=== PATIENT | female | born 1955 | race Hispanic/Latino ===

== ENCOUNTER 2017-04-28 08:46 | Outpatient (CLI) | payer OTHER ==
--- NOTE | 2017-04-28 13:25 | Cat Scan Report ---
CT ABDOMEN AND PELVIS WITH CONTRAST: 04/28/17 08:46:00 CLINICAL: Epigastric pain and abdominal distention. COMPARISON: None. TECHNIQUE: Volumetric acquisition and 1.25 millimeter scan reconstructions after the uneventful intravenous injection of 100 cc Omnipaque 300. Consent was obtained prior to the administration of contrast. Oral contrast was also given. FINDINGS: Abdomen: The lung bases are clear.Normal liver and bile ducts status post cholecystectomy. The common bile that measures 8 mm in the tee hepatis. CBD tapers normally to the ampulla and there is no evidence of choledocholithiasis. Normal stomach, duodenum, pancreas and spleen. Normal adrenal glands. Kidneys are normal except for bilateral benign cysts. A posterior parapelvic cyst in the midportion of the right kidney measures 2.9 cm and a benign left upper pole renal cyst measures 1 cm. The renal collecting systems and ureters are nondilated. No urinary calculus or mass. Moderate calcification of the aorta and iliac arteries. The inferior vena cava is normal. Normal small bowel.Normal ascending and transverse colon. Mild diverticulosis of the descending colon. An appendix is not identified. The terminal ileum is normal. No mass, lymphadenopathy or ascites.No pneumoperitoneum. Pelvis: Normal urinary bladder.Normal uterus. Ovaries are not identified. The rectum is normal. Extensive diverticulosis of the sigmoid colon but no signs of diverticulitis. No pelvic mass or fluid. Bone windows demonstrate no suspicious bone lesion. Degenerative changes in the spine. IMPRESSION:1. Status post cholecystectomy. 2. Bilateral benign renal cysts. 3. No ventral hernia. 4. No explanation for epigastric pain. 5. Diverticulosis of the left colon and sigmoid colon but no diverticulitis. 6. Status post appendectomy.
== END 2017-04-28 08:47 | disposition home or self-care (01) ==
LOC: SPVIMAG 08:46
PROVIDERS: ATTEND Internal Medicine Gastroenterology
DX: N28.1 Cyst of kidney, acquired (principal); K57.30 Diverticulosis of large intestine without perforation or abscess without bleeding; I70.0 Atherosclerosis of aorta; M47.899 Other spondylosis, site unspecified; Z90.89 Acquired absence of other organs; Z90.49 Acquired absence of other specified parts of digestive tract
CPT/HCPCS: 74177; Q9967